=== PATIENT | female | born 1960 | race Caucasian/White ===

== ENCOUNTER 2017-05-08 14:40 | Emergency (ER) | payer MEDICARE ==
[~2017-05-08] VITALS: Ht 165.1 cm; Wt 92.0 kg
[~2017-05-08 14:40] MED LIST: ALBU6.7H INH; ARIC10TA PO; CLOZ100T3 PO; IBUP-232 PO; IPRA17I INH; PENI500T PO; TRIH2ELI PO
[2017-05-08 14:44] VITALS: BP 135/73; PULSE 83; RESP 16; TEMP 99.1; O2SAT 96
[2017-05-08] MEDS ORDERED: DONE10TA7 PO (15:32)
[2017-05-08] MEDS ORDERED: TRIH5TAB2 PO (15:32)
[2017-05-08] MEDS ORDERED: CLOZ100T3 PO (15:32)
--- NOTE | 2017-05-08 16:23 | PD ---
HPI Chief Complaint: Injury Time Seen by Provider: 15:25 Travel History International Travel<30 days: No Contact w/Intl Traveler<30days: No Traveled to known affect area: No History of Present Illness HPI This is a 56-year-old female here with left hand pain 4 days. Patient reports she had a mechanical trip and fall injuring left hand. She denies paresthesia or weakness of extremity. Pain is worse with palpation of the dorsal aspect of the hand and movement of the fingers. Slightly relieved with rest. Symptom severity is moderate. Patient is also complaining of productive cough that has been present for 10 days. Denies fever or chills. Reports colored phlegm. PFSH Past Medical History Hx Anticoagulant Therapy: No Anxiety: Yes Cancer: No Cardiovascular Problems: No Diabetes: No Endocrine: No Genitourinary: No Immune Disorder: No Musculoskeletal: No Psychiatric: Yes Reproductive: No Respiratory: No Schizophrenia: Yes Tetanus Vaccination: Unknown Influenza Vaccination: No Past Surgical History Surgical History: No Previous Surgery Other Surgery: No Social History Alcohol Use: No Tobacco Use: No Substance Use: No Allergies-Medications (Allergen,Severity, Reaction): Coded Allergies: No Known Allergies (Verified Adverse Reaction, Unknown, 05/08/17) Reported Meds & Prescriptions Reported Meds & Active Scripts Active Reported Clozapine 100 Mg Tab 100 Mg PO HS Donepezil 10 Mg Tab 10 Mg PO HS Trihexyphenidyl (Trihexyphenidyl HCl) 5 Mg Tab 5 Mg PO DAILY Review of Systems Except as stated in HPI: all other systems reviewed are Neg General / Constitutional: No: Fever Eyes: No: Visual changes HENT: No: Headaches Cardiovascular: No: Chest Pain or Discomfort Respiratory: Positive: Cough Gastrointestinal: No: Abdominal Pain Genitourinary: No: Dysuria Physical Exam Narrative GENERAL: Alert and well-appearing 61-year-old female. SKIN: Warm and dry. No rash HEAD: Normocephalic. EYES: No injection or drainage. Ear/nose/throat: No TM erythema. Clear nasal discharge. Mild pharyngeal erythema without tonsillar hypertrophy or exudate. NECK: Supple. No meningismus CARDIOVASCULAR: Regular rate and rhythm RESPIRATORY: Breath sounds equal bilaterally. No accessory muscle use.+ rhonchi GASTROINTESTINAL: Abdomen soft, non-tender, nondistended. MUSCULOSKELETAL: No cyanosis. Left hand: Notable swelling and mild ecchymosis to the dorsal aspect. No deformity. Tenderness over the fourth MCP joint. Patient can freely flex and extend the fingers. Normal sensation. Brisk cap refill. BACK: No CVA tenderness. Data Data Last Documented VS Vital Signs Date Time Temp Pulse Resp B/P (MAP) Pulse Ox O2 Delivery O2 Flow Rate FiO2 05/08/17 14:44 99.1 83 16 135/73 (93) 96 Orders Orders Hand, Complete ([id number]) (05/08/17 ) MDM Medical Decision Making Medical Screen Exam Complete: Yes Emergency Medical Condition: Yes Differential Diagnosis Metacarpal fracture, contusion, bronchitis, pneumonia Narrative Course 56-year-old female here with injury to the left hand and a rhonchorous cough. The extremity is neurovascularly intact. The patient is nontoxic-appearing. X-ray left hand: Negative for x-ray Patient will be treated for hand contusion and bronchitis. Diagnosis Primary Impression: Hand contusion Qualified Codes: S60.222A - Contusion of left hand, initial encounter Additional Impression: Bronchitis Referrals: Primary Care Physician Additional Instructions: Antibiotics as prescribed. Take [id number] ibuprofen as needed for pain. Follow-up with her primary doctor Scripts Azithromycin (Azithromycin) 250 Mg Tab 250 MG PO DIRECTED for Infection, #6 TAB 0 Refills Take 2 tabs (500 mg) on day 1 then 1 tab daily x 4 days. Prov: Chelsey López 05/08/17 Disposition: 01 DISCHARGE HOME Condition: Stable Chelsey López May 08, 2017 16:23
[2017-05-08] MEDS ORDERED: AZIT250T3 PO (16:43)
--- NOTE | 2017-05-08 16:44 | RADRPT ---
EXAM DATE/TIME: 05/08/2017 16:03 [facility] COMPARISON: No previous studies available for comparison. INDICATIONS : Left hand, 5th metacarpal pain after falling and landing on hand. MEDICAL HISTORY : None. SURGICAL HISTORY : None. ENCOUNTER: Initial ACUITY: 4 - 6 days PAIN SCORE: 2/10 LOCATION: Left hand FINDINGS: Minimal deformity base of the fifth metacarpal there probably is nondisplaced fracture. Alignment is anatomic. No other abnormalities appreciated. CONCLUSION: Probable fracture base of the fifth metacarpal. Avinash Liu MD FACR on May 08, 2017 at 16:41 Board Certified Radiologist. This report was verified electronically.
== END 2017-05-08 17:17 | disposition home or self-care (01) ==
LOC: PHEFT 14:40
DX: S60.222A Contusion of left hand, initial encounter (principal); W01.0XXA Fall on same level from slipping, tripping and stumbling without subsequent striking against object, initial encounter; J40 Bronchitis, not specified as acute or chronic; F20.9 Schizophrenia, unspecified
CPT/HCPCS: 73130; 99283